=== PATIENT | female | born 1985 | race Caucasian/White ===

== ENCOUNTER 2016-08-16 11:55 | Observation (INO) | payer OTHER ==
[~2016-08-16] VITALS: Ht 165.1 cm; Wt 73.1 kg
--- NOTE | 2016-08-16 12:27 | PHYS DOC ---
Adult General Chief Complaint Chief Complaint: NEAR SYNCOPE HPI HPI Patient is a 31 year old female who presents with episode. She is in detention currently and states she's missed her last menstrual period and she is concerned she might be . She states she was just walking and suddenly passed out and landed on her right knee and right elbow. She denies hitting her head or neck. She remembers most of it but not 100% of it. She states she felt somewhat nauseated and little short of breath during the event which resolved afterwards. Currently she denies any shortness breath chest pain nausea vomiting abdominal discomfort or lightheadedness. She is complaining about right knee hurting however she is able to ambulate on it. She states she missed her last menstrual cycle and is concerned she could be due to her symptoms. She denies any vaginal bleeding or dysuria. Review of Systems Review of Systems Constitutional: Denies fever or chills [] Eyes: Denies change in visual acuity, redness, or eye pain [] HENT: Denies nasal congestion or sore throat [] Respiratory: Denies cough or shortness of breath [] Cardiovascular: No additional information not addressed in HPI [] GI: Denies abdominal pain, nausea, vomiting, bloody stools or diarrhea [] : Denies dysuria or hematuria [] Musculoskeletal: Denies back pain or joint pain [] Integument: Denies rash or skin lesions [] Neurologic: Denies headache, focal weakness or sensory changes [] Endocrine: Denies polyuria or polydipsia [] Current Medications Current Medications Current Medications Medications (Trade) Dose Ordered Sig/Sade Start Time Stop Time Status Last Admin Dose Admin Ceftriaxone Sodium 1 gm/ Sodium Chloride 50 ml @ 100 mls/hr Q24H 08/17/16 15:00 Ceftriaxone Sodium (Rocephin 1gm Ivpb For Omni) 50 ml @ 100 mls/hr 1X ONCE 08/16/16 14:45 08/16/16 15:14 DC Ondansetron HCl (Zofran) 4 mg PRN Q8HRS PRN 08/16/16 15:30 08/17/16 15:29 Allergies Allergies Allergies Coded Allergies Type Severity Reaction Last Updated Verified prochlorperazine Allergy Severe Unknown 08/16/16 Yes trimethobenzamide Allergy Severe Unknown 08/16/16 Yes linezolid Allergy Intermediate Hives 08/16/16 Yes Physical Exam Physical Exam Constitutional: Well developed, well nourished, no acute distress, non-toxic appearance. [] HENT: Normocephalic, atraumatic, bilateral external ears normal, oropharynx moist, no oral exudates, nose normal. [] Eyes: PERRLA, EOMI, conjunctiva normal, no discharge. [] Neck: Normal range of motion, no tenderness, supple, no stridor. [] Cardiovascular:Heart rate regular rhythm, no murmur [] Lungs & Thorax: Bilateral breath sounds clear to auscultation [] Abdomen: Bowel sounds normal, soft, no tenderness, no masses, no pulsatile masses. [] Skin: Warm, dry, no erythema, no rash. [] Back: No tenderness, no CVA tenderness. [] Extremities: Palpation over the right kneecap with ecchymosis, no obvious deformity, remaining joints are nontender with full range of motion, no cyanosis , no clubbing, ROM intact, no edema. [] Neurologic: Alert and oriented X 3, normal motor function, normal sensory function, no focal deficits noted. [] Psychologic: Affect normal, judgement normal, mood normal. [] Current Patient Data Vital Signs Vital Signs Date Time Temp Pulse Resp B/P Pulse Ox O2 Delivery O2 Flow Rate FiO2 08/16/16 12:10 98.1 69 18 133/82 96 Room Air 98.1 Lab Values Laboratory Tests Test 08/16/16 11:18 08/16/16 12:10 08/16/16 13:00 08/16/16 14:20 POC Urine HCG, Qualitative Hcg negative (Negative) Urine Collection Type Unknown Urine Color Melisa Urine Clarity Clear Urine pH 6.0 Urine Specific [place] 1.025 Urine Protein 30mg/dL (NEG-TRACE) Urine Glucose (UA) Negativemg/dL (NEG) Urine Ketones (Stick) Tracemg/dL (NEG) Urine Blood Negative (NEG) Urine Nitrite Negative (NEG) Urine Bilirubin Small (NEG) Urine Urobilinogen Dipstick 1.0mg/dL (0.2 mg/dL) Urine Leukocyte Esterase Moderate (NEG) Urine RBC 0/HPF (0-2) Urine WBC Tntc/HPF (0-4) Urine Bacteria 0/HPF (0-FEW) Urine Mucus Mod/LPF Urine Opiates Screen Neg (NEG) Urine Methadone Screen Neg (NEG) Urine Barbiturates Neg (NEG) Urine Phencyclidine Screen Neg (NEG) Urine Amphetamine/Methamphetamine Neg (NEG) Urine Benzodiazepines Screen Pos (NEG) Urine Cocaine Screen Neg (NEG) Urine Cannabinoids Screen Pos (NEG) Urine Ethyl Alcohol Neg (NEG) White Blood Count 11.2x10^3/uL (4.0-11.0) H Red Blood Count 4.54x10^6/uL (3.50-5.40) Hemoglobin 14.6g/dL (12.0-15.5) Hematocrit 44.2% (36.0-47.0) Mean Corpuscular Volume 98fL (79-100) Mean Corpuscular Hemoglobin 32pg (25-35) Mean Corpuscular Hemoglobin Concent 33g/dL (31-37) Red Cell Distribution Width 13.1% (11.5-14.5) Platelet Count 338x10^3/uL (140-400) Neutrophils (%) (Auto) 75% (31-73) H Lymphocytes (%) (Auto) 17% (24-48) L Monocytes (%) (Auto) 7% (0-9) Eosinophils (%) (Auto) 0% (0-3) Basophils (%) (Auto) 0% (0-3) Neutrophils # (Auto) 8.4x10^3uL (1.8-7.7) H Lymphocytes # (Auto) 1.9x10^3/uL (1.0-4.8) Monocytes # (Auto) 0.8x10^3/uL (0.0-1.1) Eosinophils # (Auto) 0.0x10^3/uL (0.0-0.7) Basophils # (Auto) 0.0x10^3/uL (0.0-0.2) D-Dimer (Wilma) < 0.27ug/mlFEU (0.00-0.50) Sodium Level 141mmol/L (136-145) Potassium Level 4.6mmol/L (3.5-5.1) Chloride Level 105mmol/L (98-107) Carbon Dioxide Level 32mmol/L (21-32) Anion Gap 4 (6-14) L Blood Urea Nitrogen 9mg/dL (7-20) Creatinine 0.8mg/dL (0.6-1.0) Estimated GFR (Cockcroft-Gault) 82.6 Glucose Level 95mg/dL (70-99) Calcium Level 9.1mg/dL (8.5-10.1) Magnesium Level 2.3mg/dL (1.8-2.4) Total Bilirubin 0.3mg/dL (0.2-1.0) Direct Bilirubin 0.1mg/dL (0.0-0.2) Aspartate Amino Transferase (AST) 33U/L (15-37) Alanine Aminotransferase (ALT) 80U/L (14-59) H Alkaline Phosphatase 83U/L (46-116) Creatine Kinase 24U/L (26-192) L 22U/L (26-192) L Creatine Kinase MB (Mass) 1.9ng/mL (0.0-3.6) 2.1ng/mL (0.0-3.6) Creatine Kinase MB Relative Index 7.9% (0-4) H 9.5% (0-4) H Troponin I Quantitative < 0.017ng/mL (0.000-0.055) < 0.017ng/mL (0.000-0.055) CW-Dfq-V-Type Natriuretic Peptide 72pg/mL (0-124) Total Protein 6.6g/dL (6.4-8.2) Albumin 3.4g/dL (3.4-5.0) Thyroid Stimulating Hormone (TSH) 3.521uIU/mL (0.358-3.74) Serum Test, Qualitative Negative (NEG) Laboratory Tests 08/16/16 13:00 Laboratory Tests 08/16/16 13:00 EKG EKG EKG shows sinus rhythm with a rate of 62 bpm with an incomplete right bundle branch morphology, no ST elevations, T-wave inversions in lead 3, normal axis, QTC 408 ms, as interpreted by me. Radiology/Procedures Radiology/Procedures [facility] [address] [place] [address] IMAGING REPORT Signed PATIENT: JOSE YANG ACCOUNT: [id number] : 1985 LOCATION: ER AGE: 31 SEX: F EXAM STATUS: PRE ER ORD. PHYSICIAN: CHAITANYA MANRIQUE MD REASON: fall with knee pain PROCEDURE: KNEE RIGHT 4V Right knee with patella, 4 views, 08/16/2016: History: Syncope anterior pain No fracture or dislocation is identified. No significant joint effusion is seen. There is subcutaneous edema anteriorly. IMPRESSION: No acute bony abnormality is detected. DICTATED and SIGNED BY: JOSH ROCA MD DATE: 08/16/16 1314 CC: CHAITANYA MANRIQUE MD ~ Impressions: Syncope UTI Course & Med Decision Making Course & Med Decision Making Pertinent Labs and Imaging studies reviewed. (See chart for details) Patient's EKG has T-wave inversions in lead 3, her CK MB index on repeat has risen. She does have to numerous to count white blood cells in her urine without any bacteria which is suspicious for chlamydia. She denies any vaginal discharge or other concerns. I did order 1 g of Rocephin for possible UTI and she will need a GC chlamydia test in-house. Patient is being admitted to hospitalists in stable condition at this time. Dragon Disclaimer Dragon Disclaimer This electronic medical record was generated, in whole or in part, using a voice recognition dictation system. Departure Departure Impression: Primary Impression: Syncope Disposition: ADMITTED INPATIENT Admitting Physician: Marlene Andres Condition: STABLE CHAITANYA MANRIQUE MD Aug 16, 2016 12:26
[2016-08-16 12:30] LABS: BILIRUBIN,URINE SMALL (NEG); GLUCOSE,URINE NEGATIVE (NEG); NITRITE,URINE NEGATIVE (NEG); PROTEIN,URINE 30 mg/dL (NEG-TRACE)
[2016-08-16 12:37] LABS: BARBITURATES NEG (NEG); BENZODIAZEPINES POS (NEG); CANNABINOIDS POS (NEG); COCAINE NEG (NEG); ETHANOL, URINE NEG (NEG); METHADONE NEG (NEG); OPIATES NEG (NEG); PHENCYCLIDINE NEG (NEG)
[2016-08-16 12:45] LABS: RBC,URINE 0 /HPF (0-2); WBC,URINE TNTC /HPF (0-4)
[2016-08-16 12:46] LABS: BACTERIA,URINE 0 /HPF (0-FEW)
[2016-08-16 13:16] LABS: BASO % 0 % (0-3); EOS % 0 % (0-3); HEMATOCRIT 44.2 % (36.0-47.0); HEMOGLOBIN 14.6 g/dL (12.0-15.5); LYMPH # 1.9 x10^3/uL (1.0-4.8); LYMPH % 17 % (24-48); MEAN CORPUSCULAR HEMOGLOBIN 32 pg (25-35); MEAN CORPUSCULAR HGB CONC 33 g/dL (31-37); MEAN CORPUSCULAR VOLUME 98 fL (79-100); MONO % 7 % (0-9); NEUT % 75 % (31-73); PLATELET COUNT 338 x10^3/uL (140-400); RED BLOOD COUNT 4.54 x10^6/uL (3.50-5.40); RED CELL DISTRIBUTION WIDTH 13.1 % (11.5-14.5); WHITE BLOOD COUNT 11.2 x10^3/uL (4.0-11.0)
--- NOTE | 2016-08-16 13:17 | RAD ---
Right knee with patella, 4 views, 08/16/2016: History: Syncope anterior pain No fracture or dislocation is identified. No significant joint effusion is seen. There is subcutaneous edema anteriorly. IMPRESSION: No acute bony abnormality is detected.
[2016-08-16 13:28] LABS: NEG OBC SER NEG; POS OBC SER POS
[2016-08-16 13:32] LABS: CALCIUM 9.1 mg/dL (8.5-10.1); CREATININE 0.8 mg/dL (0.6-1.0); GFR 82.6; POTASSIUM 4.6 mmol/L (3.5-5.1)
[2016-08-16 13:39] LABS: ALBUMIN 3.4 g/dL (3.4-5.0); DIRECT BILIRUBIN 0.1 mg/dL (0.0-0.2); MAGNESIUM 2.3 mg/dL (1.8-2.4); TOTAL BILIRUBIN 0.3 mg/dL (0.2-1.0); TOTAL PROTEIN 6.6 g/dL (6.4-8.2)
[2016-08-16 13:46] LABS: CKMB INDEX 7.9 % (0-4); CKMB MASS 1.9 ng/mL (0.0-3.6)
--- NOTE | 2016-08-16 14:47 | EKG ---
[facility] [address] [place] [address] Test Date: 2016-08-16 Test Time: 12:01:06 Pat Name: JOSE YANG Department: Room: Gender: F Excel Developer: : 1985 Requested By: CHAITANYA MANRIQUE Order Number: [id number] Reading MD: Bong Staton Measurements Intervals [place] Rate: 62 P: 48 CT: 122 QRS: 63 QRSD: 94 T: 24 QT: 400 QTc: 408 Interpretive Statements SINUS RHYTHM INCOMPLETE RIGHT BUNDLE BRANCH BLOCK Electronically Signed On 08-17-2016 8:30:21 CDT by Bong Staton
[2016-08-16 14:50] LABS: CKMB INDEX 9.5 % (0-4); CKMB MASS 2.1 ng/mL (0.0-3.6)
[2016-08-16] MEDS ORDERED: ONDANSETRON PF 4 MG/2 ML VIAL. IV PRN (15:30)
--- NOTE | 2016-08-16 16:48 | PDOC2 ---
MAYNOR DIAZ SPICE ROOM WORKER 08/16/16 1648: CARDIAC CONSULT DATE OF CONSULT Date of Consult DATE: 08/16/16 TIME: 16:31 REASON FOR CONSULT Reason for Consult: syncope REFERRING PHYSICIAN Referring Physician: Dr. Mansfield SOURCE Source: Chart review, Patient HISTORY OF PRESENT ILLNESS HISTORY OF PRESENT ILLNESS This is a pleasant 31 yo female who presented secondary to syncopal episode. Presently incarcerated. Patient reports she was walking in the medication room earlier today and suddenly felt dizzy and passed out. Staff was near and able to check vital immediately; BP and HR reportedly dropped low. Possible brief LOC. Landed on right knee and elbow. Denies feeling anxious or stress prior to episode. No chest pains, palpitations, recent fevers or illness. Tries to remain adequately hydrated. Patient reports history of syncopal episodes over 11 years ago. Had multiple EKGs and wore Holter monitor for 3 days, which did not reveal any acute abnormalities. With previous episodes, patient reported having preceding symptoms that would allow he to sit or lie down prior to passing out. This however, was not the case with today's episode. Carotid stimulation performed without any pauses noted. PAST MEDICAL HISTORY Cardiovascular: Other (syncopal episodes ) Pulmonary: No pertinent hx GI: No pertinent hx Heme/Onc: No pertinent hx Hepatobiliary: No pertinent hx Rheumatologic: No pertinent hx ENT: No pertinent hx Renal/: No pertinent hx Endocrine: No pertinent hx Dermatology: No pertinent hx PAST SURGICAL HISTORY Past Surgical History: No pertinent history FAMILY HISTORY Family History: Other (none pertinent ) SOCIAL HISTORY Smoke: <1 pack per day ALCOHOL: none Drugs: Marijuana Lives: Roommate (incarcerated ) CURRENT MEDICATIONS CURRENT MEDICATIONS Current Medications Medications (Trade) Dose Ordered Sig/Sade Route PRN Reason Start Time Stop Time Status Last Admin Dose Admin Ceftriaxone Sodium (Rocephin 1gm Ivpb For Omni) 50 ml @ 100 mls/hr 1X ONCE IV 08/16/16 14:45 08/16/16 15:14 DC 08/16/16 15:59 ALLERGIES ALLERGIES: Coded Allergies: prochlorperazine (Verified Allergy, Severe, Unknown, 08/16/16) DYSTONIC REACTION trimethobenzamide (Verified Allergy, Severe, Unknown, 08/16/16) DYSTONIC REACTION linezolid (Verified Allergy, Intermediate, Hives, 4/26/17) ROS Review of System 14 point ROS conducted with pertinent positives noted above in HPI PHYSICAL EXAM General: Alert, Oriented X3, Cooperative HEENT: Atraumatic, Mucous membr. moist/pink Lungs: Clear to auscultation, Normal air movement Heart: Regular rate, Normal S1, Normal S2 Abdomen: Normal bowel sounds Extremities: No edema, Normal pulses Skin: No breakdown, No significant lesion Neuro: Normal speech, Sensation intact Psych/Mental Status: Mental status NL, Mood NL MUSCULOSKELETAL: No joint tenderness VITALS VITALS Vital Signs Date Time Temp Pulse Resp B/P Pulse Ox O2 Delivery O2 Flow Rate FiO2 08/16/16 12:10 98.1 69 18 133/82 96 Room Air 98.1 LABS Lab: Laboratory Tests Test 08/16/16 11:18 08/16/16 12:10 08/16/16 13:00 08/16/16 14:20 Bedside Urine HCG, Qualitative Hcg negative (Negative) Urine Collection Type Unknown Urine Color Melisa Urine Clarity Clear Urine pH 6.0 Urine Specific [place] 1.025 Urine Protein 30mg/dL (NEG-TRACE) Urine Glucose (UA) Negativemg/dL (NEG) Urine Ketones (Stick) Tracemg/dL (NEG) Urine Blood Negative (NEG) Urine Nitrite Negative (NEG) Urine Bilirubin Small (NEG) Urine Urobilinogen Dipstick 1.0mg/dL (0.2 mg/dL) Urine Leukocyte Esterase Moderate (NEG) Urine RBC 0/HPF (0-2) Urine WBC Tntc/HPF (0-4) Urine Bacteria 0/HPF (0-FEW) Urine Mucus Mod/LPF Urine Opiates Screen Neg (NEG) Urine Methadone Screen Neg (NEG) Urine Barbiturates Neg (NEG) Urine Phencyclidine Screen Neg (NEG) Urine Amphetamine/Methamphetamine Neg (NEG) Urine Benzodiazepines Screen Pos (NEG) Urine Cocaine Screen Neg (NEG) Urine Cannabinoids Screen Pos (NEG) Urine Ethyl Alcohol Neg (NEG) White Blood Count 11.2x10^3/uL (4.0-11.0) Red Blood Count 4.54x10^6/uL (3.50-5.40) Hemoglobin 14.6g/dL (12.0-15.5) Hematocrit 44.2% (36.0-47.0) Mean Corpuscular Volume 98fL (79-100) Mean Corpuscular Hemoglobin 32pg (25-35) Mean Corpuscular Hemoglobin Concent 33g/dL (31-37) Red Cell Distribution Width 13.1% (11.5-14.5) Platelet Count 338x10^3/uL (140-400) Neutrophils (%) (Auto) 75% (31-73) Lymphocytes (%) (Auto) 17% (24-48) Monocytes (%) (Auto) 7% (0-9) Eosinophils (%) (Auto) 0% (0-3) Basophils (%) (Auto) 0% (0-3) Neutrophils # (Auto) 8.4x10^3uL (1.8-7.7) Lymphocytes # (Auto) 1.9x10^3/uL (1.0-4.8) Monocytes # (Auto) 0.8x10^3/uL (0.0-1.1) Eosinophils # (Auto) 0.0x10^3/uL (0.0-0.7) Basophils # (Auto) 0.0x10^3/uL (0.0-0.2) D-Dimer (Wilma) < 0.27ug/mlFEU (0.00-0.50) Sodium Level 141mmol/L (136-145) Potassium Level 4.6mmol/L (3.5-5.1) Chloride Level 105mmol/L (98-107) Carbon Dioxide Level 32mmol/L (21-32) Anion Gap 4 (6-14) Blood Urea Nitrogen 9mg/dL (7-20) Creatinine 0.8mg/dL (0.6-1.0) Estimated GFR (Cockcroft-Gault) 82.6 Glucose Level 95mg/dL (70-99) Calcium Level 9.1mg/dL (8.5-10.1) Magnesium Level 2.3mg/dL (1.8-2.4) Total Bilirubin 0.3mg/dL (0.2-1.0) Direct Bilirubin 0.1mg/dL (0.0-0.2) Aspartate Amino Transf (AST/SGOT) 33U/L (15-37) Alanine Aminotransferase (ALT/SGPT) 80U/L (14-59) Alkaline Phosphatase 83U/L (46-116) Creatine Kinase 24U/L (26-192) 22U/L (26-192) Creatine Kinase MB (Mass) 1.9ng/mL (0.0-3.6) 2.1ng/mL (0.0-3.6) Creatine Kinase MB Relative Index 7.9% (0-4) 9.5% (0-4) Troponin I Quantitative < 0.017ng/mL (0.000-0.055) < 0.017ng/mL (0.000-0.055) EL-Kns-N-Type Natriuretic Peptide 72pg/mL (0-124) Total Protein 6.6g/dL (6.4-8.2) Albumin 3.4g/dL (3.4-5.0) Thyroid Stimulating Hormone (TSH) 3.521uIU/mL (0.358-3.74) Serum Test, Qualitative Negative (NEG) ASSESSMENT/PLAN ASSESSMENT/PLAN 1. syncope likely neurocardiogenic based upon nature of symptoms will check echo to assess for significant valvular abnormalities contributing plan for tilt-table test in am for further evaluation if positive, would consider for PPM 2. UTI treatment per PCP Problems: TRINIDAD DU MD 08/16/16 1712: CARDIAC CONSULT ALLERGIES ALLERGIES: Coded Allergies: prochlorperazine (Verified Allergy, Severe, Unknown, 08/16/16) DYSTONIC REACTION trimethobenzamide (Verified Allergy, Severe, Unknown, 08/16/16) DYSTONIC REACTION linezolid (Verified Allergy, Intermediate, Hives, 08/16/16) ASSESSMENT/PLAN ASSESSMENT/PLAN Patient seen and examined. Agree with GEROPSYCHOLOGIST's assessment and plan. Syncope appears to be neurocardiogenic in etiology. Carotid massage did not elicit noted artery hypersensitivity syndrome. Check 2-D echo to assess LV function and rule out structural abnormalities. Plan for tilt table testing for further evaluation and consider pacemaker if needed. Thank you for your consultation. Problems: MAYNOR DIAZ APRN Aug 16, 2016 16:48 TRINIDAD DU MD Aug 16, 2016 17:12
--- NOTE | 2016-08-16 17:13 | ACF ---
Admission Forms Criteria SYNCOPE Clinical Indications for Admission to Inpatient Care ( Place 'X' for any and all applicable criteria): Admission is indicated for syncope and ANY ONE of the following (1)(2)(3)(4)(5) (6)(7) : [X]I. Inpatient admission required rather than observation care (Also use Syncope: Observation Care Criteria as appropriate) because of ANY ONE of the following: [ ]a) Hemodynamic instability that is severe or persistent [ ]b) Cardiac arrhythmias of immediate concern identified or strongly suspected (eg, needs electrophysiologic study) [ ]c) Acute coronary syndrome identified (Also use Myocardial Infarction or Angina Criteria form ) [ ]d) Structural cardiac disorder (eg, aortic stenosis) suspected as cause that requires immediate correction [ ]e) Respiratory symptoms (eg, dyspnea, tachypnea) that are severe or persistent [ ]f) Neurologic signs or symptoms that are severe or persistent ( eg, stroke, seizures, altered mental status) [ ]g) Severe electrolyte abnormalities requiring inpatient care [ ]h) Supplemental oxygen or respiratory treatment for over 24 hrs that are performable only in acute inpatient setting [ ]i) IV fluid to replace significant ongoing (eg, for over 24 hrs ) losses (>3 L/m2 per day) [ ]j) Continuous intravenous infusion of anticoagulation, platelet inhibitor, vasoactive, or antiarrhythmic medication(15)(16) [ ]k) Pulmonary artery catheter monitoring [ ]l) Temporary pacemaker placement(17) [ ]m) Emergent cardioversion(18) [X]n) Other conditions, treatment or monitoring requiring inpatient admission [ ]II. Suspicion of imminently dangerous cause (eg, rare causes like pericardial tamponade, pulmonary embolism) [ ]III. Syncope causing severe injury requiring hospitalization Extended stay beyond goal length of stay may be needed for(28) [ ]a) Dangerous arrhythmia(15)(23)(27)(29) [ ]b) Myocardial ischemia [ ]c) Seizure disorder [ ]d) Syncope-related injuries The original [employer] content created by [employer] has been revised. The portions of the content which have been revised are identified through the use of italic text or in bold, and [employer] has neither reviewed nor approved the modified material. All other unmodified content is copyright [employer]. Please see references footnoted in the original [facility] edition 2016 Admission Criteria Met?: Yes GINA MCKEON Aug 16, 2016 17:13
[2016-08-16 19:00] VITALS: BP 116/70
--- NOTE | 2016-08-16 19:58 | PDOC1 ---
History and Physical Past Medical History Cardiovascular: Other (syncopal episodes ) Pulmonary: No pertinent hx GI: No pertinent hx Heme/Onc: No pertinent hx Hepatobiliary: No pertinent hx Rheumatologic: No pertinent hx ENT: No pertinent hx Renal/: No pertinent hx Endocrine: No pertinent hx Dermatology: No pertinent hx Past Surgical History Past Surgical History: No pertinent history Family History Family History: Other (none pertinent ) Social History Smoke: <1 pack per day ALCOHOL: none Drugs: Marijuana Current Problem List Problem List Problems Medical Problems: (1) Syncope Status: Acute Current Medications Current Medications Current Medications Medications (Trade) Dose Ordered Sig/Sade Start Time Stop Time Status Last Admin Dose Admin Ceftriaxone Sodium 1 gm/ Sodium Chloride 50 ml @ 100 mls/hr Q24H 08/17/16 15:00 Ceftriaxone Sodium (Rocephin 1gm Ivpb For Omni) 50 ml @ 100 mls/hr 1X ONCE 08/16/16 14:45 08/16/16 15:14 DC 08/16/16 15:59 100 MLS/HR Ondansetron HCl (Zofran) 4 mg PRN Q8HRS PRN 08/16/16 15:30 08/17/16 15:29 Allergies Allergies Allergies Coded Allergies Type Severity Reaction Last Updated Verified prochlorperazine Allergy Severe Unknown 08/16/16 Yes trimethobenzamide Allergy Severe Unknown 08/16/16 Yes linezolid Allergy Intermediate Hives 08/16/16 Yes ROS Review of System CONSTITUTIONAL: No fever or chills EYES: No recent changes SKIN: No rash or itching CARDIOVASCULAR: syncope,no palpitations, or edema RESPIRATORY: No SOB or cough GASTROINTESTINAL: No nausea, vomiting or abdominal pain NEUROLOGICAL: No headaches or weakness ENDOCRINE: No cold or heat intolerance GENITOURINARY: No urgency or frequency of urination MUSCULOSKELETAL: No back pain or joint pain LYMPHATICS: No enlarged lymph nodes PSYCHIATRIC: No anxiety or depression Physical Exam Physical Exam GEN.: No apparent distress. Alert and oriented. HEENT: Head is normocephalic, atraumatic NECK: Supple. LUNGS: Clear to auscultation. HEART: RRR, S1, S2 present. Peripheral pulses intact ABDOMEN: Soft, nontender. Positive bowel sounds. EXTREMITIES: Without any cyanosis. NEUROLOGIC: Normal speech, normal tone PSYCHIATRIC: Normal affect, normal mood. SKIN: No ulcerations Vitals Vitals Vital Signs Date Time Temp Pulse Resp B/P Pulse Ox O2 Delivery O2 Flow Rate FiO2 08/16/16 18:00 67 20 111/68 99 Room Air 08/16/16 12:10 98.1 98.1 Labs Labs Laboratory Tests Test 08/16/16 11:18 08/16/16 12:10 08/16/16 13:00 08/16/16 14:20 Bedside Urine HCG, Qualitative Hcg negative (Negative) Urine Collection Type Unknown Urine Color Melisa Urine Clarity Clear Urine pH 6.0 Urine Specific [place] 1.025 Urine Protein 30mg/dL (NEG-TRACE) Urine Glucose (UA) Negativemg/dL (NEG) Urine Ketones (Stick) Tracemg/dL (NEG) Urine Blood Negative (NEG) Urine Nitrite Negative (NEG) Urine Bilirubin Small (NEG) Urine Urobilinogen Dipstick 1.0mg/dL (0.2 mg/dL) Urine Leukocyte Esterase Moderate (NEG) Urine RBC 0/HPF (0-2) Urine WBC Tntc/HPF (0-4) Urine Bacteria 0/HPF (0-FEW) Urine Mucus Mod/LPF Urine Opiates Screen Neg (NEG) Urine Methadone Screen Neg (NEG) Urine Barbiturates Neg (NEG) Urine Phencyclidine Screen Neg (NEG) Urine Amphetamine/Methamphetamine Neg (NEG) Urine Benzodiazepines Screen Pos (NEG) Urine Cocaine Screen Neg (NEG) Urine Cannabinoids Screen Pos (NEG) Urine Ethyl Alcohol Neg (NEG) White Blood Count 11.2x10^3/uL (4.0-11.0) Red Blood Count 4.54x10^6/uL (3.50-5.40) Hemoglobin 14.6g/dL (12.0-15.5) Hematocrit 44.2% (36.0-47.0) Mean Corpuscular Volume 98fL (79-100) Mean Corpuscular Hemoglobin 32pg (25-35) Mean Corpuscular Hemoglobin Concent 33g/dL (31-37) Red Cell Distribution Width 13.1% (11.5-14.5) Platelet Count 338x10^3/uL (140-400) Neutrophils (%) (Auto) 75% (31-73) Lymphocytes (%) (Auto) 17% (24-48) Monocytes (%) (Auto) 7% (0-9) Eosinophils (%) (Auto) 0% (0-3) Basophils (%) (Auto) 0% (0-3) Neutrophils # (Auto) 8.4x10^3uL (1.8-7.7) Lymphocytes # (Auto) 1.9x10^3/uL (1.0-4.8) Monocytes # (Auto) 0.8x10^3/uL (0.0-1.1) Eosinophils # (Auto) 0.0x10^3/uL (0.0-0.7) Basophils # (Auto) 0.0x10^3/uL (0.0-0.2) D-Dimer (Wilma) < 0.27ug/mlFEU (0.00-0.50) Sodium Level 141mmol/L (136-145) Potassium Level 4.6mmol/L (3.5-5.1) Chloride Level 105mmol/L (98-107) Carbon Dioxide Level 32mmol/L (21-32) Anion Gap 4 (6-14) Blood Urea Nitrogen 9mg/dL (7-20) Creatinine 0.8mg/dL (0.6-1.0) Estimated GFR (Cockcroft-Gault) 82.6 Glucose Level 95mg/dL (70-99) Calcium Level 9.1mg/dL (8.5-10.1) Magnesium Level 2.3mg/dL (1.8-2.4) Total Bilirubin 0.3mg/dL (0.2-1.0) Direct Bilirubin 0.1mg/dL (0.0-0.2) Aspartate Amino Transf (AST/SGOT) 33U/L (15-37) Alanine Aminotransferase (ALT/SGPT) 80U/L (14-59) Alkaline Phosphatase 83U/L (46-116) Creatine Kinase 24U/L (26-192) 22U/L (26-192) Creatine Kinase MB (Mass) 1.9ng/mL (0.0-3.6) 2.1ng/mL (0.0-3.6) Creatine Kinase MB Relative Index 7.9% (0-4) 9.5% (0-4) Troponin I Quantitative < 0.017ng/mL (0.000-0.055) < 0.017ng/mL (0.000-0.055) ZC-Wjh-D-Type Natriuretic Peptide 72pg/mL (0-124) Total Protein 6.6g/dL (6.4-8.2) Albumin 3.4g/dL (3.4-5.0) Thyroid Stimulating Hormone (TSH) 3.521uIU/mL (0.358-3.74) Serum Test, Qualitative Negative (NEG) Laboratory Tests Test 08/16/16 11:18 08/16/16 12:10 08/16/16 13:00 08/16/16 14:20 Bedside Urine HCG, Qualitative Hcg negative (Negative) Urine Collection Type Unknown Urine Color Melisa Urine Clarity Clear Urine pH 6.0 Urine Specific [place] 1.025 Urine Protein 30mg/dL (NEG-TRACE) Urine Glucose (UA) Negativemg/dL (NEG) Urine Ketones (Stick) Tracemg/dL (NEG) Urine Blood Negative (NEG) Urine Nitrite Negative (NEG) Urine Bilirubin Small (NEG) Urine Urobilinogen Dipstick 1.0mg/dL (0.2 mg/dL) Urine Leukocyte Esterase Moderate (NEG) Urine RBC 0/HPF (0-2) Urine WBC Tntc/HPF (0-4) Urine Bacteria 0/HPF (0-FEW) Urine Mucus Mod/LPF Urine Opiates Screen Neg (NEG) Urine Methadone Screen Neg (NEG) Urine Barbiturates Neg (NEG) Urine Phencyclidine Screen Neg (NEG) Urine Amphetamine/Methamphetamine Neg (NEG) Urine Benzodiazepines Screen Pos (NEG) Urine Cocaine Screen Neg (NEG) Urine Cannabinoids Screen Pos (NEG) Urine Ethyl Alcohol Neg (NEG) White Blood Count 11.2x10^3/uL (4.0-11.0) Red Blood Count 4.54x10^6/uL (3.50-5.40) Hemoglobin 14.6g/dL (12.0-15.5) Hematocrit 44.2% (36.0-47.0) Mean Corpuscular Volume 98fL (79-100) Mean Corpuscular Hemoglobin 32pg (25-35) Mean Corpuscular Hemoglobin Concent 33g/dL (31-37) Red Cell Distribution Width 13.1% (11.5-14.5) Platelet Count 338x10^3/uL (140-400) Neutrophils (%) (Auto) 75% (31-73) Lymphocytes (%) (Auto) 17% (24-48) Monocytes (%) (Auto) 7% (0-9) Eosinophils (%) (Auto) 0% (0-3) Basophils (%) (Auto) 0% (0-3) Neutrophils # (Auto) 8.4x10^3uL (1.8-7.7) Lymphocytes # (Auto) 1.9x10^3/uL (1.0-4.8) Monocytes # (Auto) 0.8x10^3/uL (0.0-1.1) Eosinophils # (Auto) 0.0x10^3/uL (0.0-0.7) Basophils # (Auto) 0.0x10^3/uL (0.0-0.2) D-Dimer (Wilma) < 0.27ug/mlFEU (0.00-0.50) Sodium Level 141mmol/L (136-145) Potassium Level 4.6mmol/L (3.5-5.1) Chloride Level 105mmol/L (98-107) Carbon Dioxide Level 32mmol/L (21-32) Anion Gap 4 (6-14) Blood Urea Nitrogen 9mg/dL (7-20) Creatinine 0.8mg/dL (0.6-1.0) Estimated GFR (Cockcroft-Gault) 82.6 Glucose Level 95mg/dL (70-99) Calcium Level 9.1mg/dL (8.5-10.1) Magnesium Level 2.3mg/dL (1.8-2.4) Total Bilirubin 0.3mg/dL (0.2-1.0) Direct Bilirubin 0.1mg/dL (0.0-0.2) Aspartate Amino Transf (AST/SGOT) 33U/L (15-37) Alanine Aminotransferase (ALT/SGPT) 80U/L (14-59) Alkaline Phosphatase 83U/L (46-116) Creatine Kinase 24U/L (26-192) 22U/L (26-192) Creatine Kinase MB (Mass) 1.9ng/mL (0.0-3.6) 2.1ng/mL (0.0-3.6) Creatine Kinase MB Relative Index 7.9% (0-4) 9.5% (0-4) Troponin I Quantitative < 0.017ng/mL (0.000-0.055) < 0.017ng/mL (0.000-0.055) ZS-Ejk-I-Type Natriuretic Peptide 72pg/mL (0-124) Total Protein 6.6g/dL (6.4-8.2) Albumin 3.4g/dL (3.4-5.0) Thyroid Stimulating Hormone (TSH) 3.521uIU/mL (0.358-3.74) Serum Test, Qualitative Negative (NEG) VTE Prophylaxis Ordered VTE Prophylaxis Devices: No VTE Pharmacological Prophylaxi: No ZION RAJAN MD Aug 16, 2016 19:58
[2016-08-16] MEDS ORDERED: hydrOXYzine PAMOATE 25 MG CAPSULE PO PRN (21:30)
[2016-08-16] MEDS: OLANZAPINE 5 MG TABLET. PO SCH (21:48)
[2016-08-16 23:00] VITALS: BP 94/53
[2016-08-17] VITALS (7 sets, daily range): BP systolic 105–117; BP diastolic 54–71
--- NOTE | 2016-08-17 03:51 | HP ---
ADMIT DATE: 08/16/2016 CHIEF COMPLAINT: Syncope. HISTORY OF PRESENT ILLNESS: This is a 31-year-old female patient with a prior history of syncope, who was brought from residential for a syncopal episode. Reportedly, the patient was walking and suddenly felt dizzy and passed out. As per the report, the patient's blood pressures were dropping with orthostatic checks and she had a brief loss of consciousness. After that, she regained consciousness. She had mild trauma on the right knee and elbow. She denies any palpitation, chest pain or shortness of breath, has no prior history of coronary artery disease. PAST MEDICAL HISTORY, REVIEW OF SYSTEMS, PHYSICAL EXAMINATION: Please see my electronic H and P. LABORATORY FINDINGS: CBC within normal limits. Chemistry within normal limits including 3 sets of troponins and test is negative and TSH is within normal limits. IMAGING STUDIES: X-ray of the knee, no acute bony abnormality seen. ASSESSMENT: Syncope, suspected neurocardiogenic versus vasovagal. PLAN: 1. She has been admitted to the hospital and currently on IV hydration. I will continue all her home medications. She has a history of anxiety and Depression 2. Cardiology has been consulted. We will get echocardiogram and continue to monitor on telemetry. 3. P.r.n. Xanax , PRN hydralazine for hypertension. ZION RAJAN MD DR: MELINDA/kushal JOB#: [id number] / [id number] DEBRA
[2016-08-17 04:05] LABS: BASO % 0 % (0-3); EOS % 0 % (0-3); HEMATOCRIT 41.7 % (36.0-47.0); LYMPH # 2.9 x10^3/uL (1.0-4.8); LYMPH % 37 % (24-48); MEAN CORPUSCULAR HEMOGLOBIN 33 pg (25-35); MEAN CORPUSCULAR HGB CONC 34 g/dL (31-37); MEAN CORPUSCULAR VOLUME 98 fL (79-100); MONO % 8 % (0-9); NEUT % 55 % (31-73); PLATELET COUNT 316 x10^3/uL (140-400); RED BLOOD COUNT 4.26 x10^6/uL (3.50-5.40); RED CELL DISTRIBUTION WIDTH 12.9 % (11.5-14.5); WHITE BLOOD COUNT 7.9 x10^3/uL (4.0-11.0)
[2016-08-17 04:24] LABS: CALCIUM 8.5 mg/dL (8.5-10.1); CREATININE 0.7 mg/dL (0.6-1.0); GFR 96.4; POTASSIUM 4.3 mmol/L (3.5-5.1)
--- NOTE | 2016-08-17 12:21 | PDOC ---
QUINTEN HILLIARD TRANSITION LEAD 08/17/16 1221: CARDIO Progress Notes Date and Time Date of Service 08/17/2016 Time of Evaluation 1210 Subjective Subjective: No Chest Pain, No shortness of breath, No Palpitations, No Dizziness, Other (ambulatory without difficulty) Vitals Vitals Vital Signs Date Time Temp Pulse Resp B/P Pulse Ox O2 Delivery O2 Flow Rate FiO2 08/17/16 10:53 97.9 57 16 117/66 97 Room Air 97.9 Weight Weight [ ] Input and Output Intake and Output Intake and Output 08/17/16 06:59 Intake Total 410 ml Balance 410 ml Intake Oral 360 ml IV Total 50 ml # Voids 4 Laboratory Labs Laboratory Tests Test 08/16/16 13:00 08/16/16 14:20 08/16/16 21:48 08/17/16 03:25 White Blood Count 11.2x10^3/uL (4.0-11.0) 7.9x10^3/uL (4.0-11.0) Red Blood Count 4.54x10^6/uL (3.50-5.40) 4.26x10^6/uL (3.50-5.40) Hemoglobin 14.6g/dL (12.0-15.5) 14.0g/dL (12.0-15.5) Hematocrit 44.2% (36.0-47.0) 41.7% (36.0-47.0) Mean Corpuscular Volume 98fL (79-100) 98fL (79-100) Mean Corpuscular Hemoglobin 32pg (25-35) 33pg (25-35) Mean Corpuscular Hemoglobin Concent 33g/dL (31-37) 34g/dL (31-37) Red Cell Distribution Width 13.1% (11.5-14.5) 12.9% (11.5-14.5) Platelet Count 338x10^3/uL (140-400) 316x10^3/uL (140-400) Neutrophils (%) (Auto) 75% (31-73) 55% (31-73) Lymphocytes (%) (Auto) 17% (24-48) 37% (24-48) Monocytes (%) (Auto) 7% (0-9) 8% (0-9) Eosinophils (%) (Auto) 0% (0-3) 0% (0-3) Basophils (%) (Auto) 0% (0-3) 0% (0-3) Neutrophils # (Auto) 8.4x10^3uL (1.8-7.7) 4.3x10^3uL (1.8-7.7) Lymphocytes # (Auto) 1.9x10^3/uL (1.0-4.8) 2.9x10^3/uL (1.0-4.8) Monocytes # (Auto) 0.8x10^3/uL (0.0-1.1) 0.6x10^3/uL (0.0-1.1) Eosinophils # (Auto) 0.0x10^3/uL (0.0-0.7) 0.0x10^3/uL (0.0-0.7) Basophils # (Auto) 0.0x10^3/uL (0.0-0.2) 0.0x10^3/uL (0.0-0.2) D-Dimer (Wilma) < 0.27ug/mlFEU (0.00-0.50) Sodium Level 141mmol/L (136-145) 142mmol/L (136-145) Potassium Level 4.6mmol/L (3.5-5.1) 4.3mmol/L (3.5-5.1) Chloride Level 105mmol/L (98-107) 107mmol/L (98-107) Carbon Dioxide Level 32mmol/L (21-32) 28mmol/L (21-32) Anion Gap 4 (6-14) 7 (6-14) Blood Urea Nitrogen 9mg/dL (7-20) 9mg/dL (7-20) Creatinine 0.8mg/dL (0.6-1.0) 0.7mg/dL (0.6-1.0) Estimated GFR (Cockcroft-Gault) 82.6 96.4 Glucose Level 95mg/dL (70-99) 81mg/dL (70-99) Calcium Level 9.1mg/dL (8.5-10.1) 8.5mg/dL (8.5-10.1) Magnesium Level 2.3mg/dL (1.8-2.4) Total Bilirubin 0.3mg/dL (0.2-1.0) Direct Bilirubin 0.1mg/dL (0.0-0.2) Aspartate Amino Transf (AST/SGOT) 33U/L (15-37) Alanine Aminotransferase (ALT/SGPT) 80U/L (14-59) Alkaline Phosphatase 83U/L (46-116) Creatine Kinase 24U/L (26-192) 22U/L (26-192) Creatine Kinase MB (Mass) 1.9ng/mL (0.0-3.6) 2.1ng/mL (0.0-3.6) Creatine Kinase MB Relative Index 7.9% (0-4) 9.5% (0-4) Troponin I Quantitative < 0.017ng/mL (0.000-0.055) < 0.017ng/mL (0.000-0.055) < 0.017ng/mL (0.000-0.055) < 0.017ng/mL (0.000-0.055) WU-Obg-H-Type Natriuretic Peptide 72pg/mL (0-124) Total Protein 6.6g/dL (6.4-8.2) Albumin 3.4g/dL (3.4-5.0) Thyroid Stimulating Hormone (TSH) 3.521uIU/mL (0.358-3.74) Serum Test, Qualitative Negative (NEG) Physical Exam HEENT: Neck Supple W Full Motion Chest: Symmetric LUNGS: Clear to Auscultation Heart: S1S2, RRR ([id number]) Abdomen: Soft N/T Extremities: No Edema, No Calf Tenderness Neurology: alert, oriented, follow commands Assessment Assessment 1. Syncope: possible neurocardiogenic syncope. 2. Sinus bradycardia: 40-50s overnight asymptomatic 3. UTI: per PCP 4. Zyprexa: indication?. Could potentially cause hypotension and syncope. Could be accentuated by prozac and vistaril as well. Defer to PCP Recommendations 1. TTE unremarkable. Tilt table pending 2. Avoid AV lissy blocking agents TRINIDAD DU MD 08/17/16 4745: CARDIO Progress Notes Assessment Assessment Patient seen and examined. Agree with [employer]'s assessment and plan. 2-D echo showed normal LV function without any significant structural abnormalities. Tilt table test showed vasodepressive response (hypootension) without cardio inhibitory response (no significant bradycardia) with reproduction of symptoms. She does not meet the criteria for permanent pacemaker implantation at this time. Plan for event monitor as an outpatient. Consider beta blockers if BP improves. QUINTEN HILLIARD APRN Aug 17, 2016 12:21 TRINIDAD DU MD Aug 17, 2016 16:48
--- NOTE | 2016-08-17 12:31 | CARD ---
APPROVED REPORT EXAM: Two-dimensional and M-mode echocardiogram with Doppler and color Doppler. Other Information Quality : GoodHR: 51bpm Rhythm : Bradycardia INDICATION Syncope Echo Enhancing Agent Indication: Rule Out Septal Defect Agent/Amount Used: Agitated Saline mL 2D DIMENSIONS RVDd2.9 (2.9-3.5cm)Left Atrium(2D)2.6 (1.6-4.0cm) IVSd0.9 (0.7-1.1cm)Aortic Root(2D)2.1 (2.0-3.7cm) LVDd3.8 (3.9-5.9cm)LVOT Diameter2.0 (1.8-2.4cm) PWd0.9 (0.7-1.1cm)LVDs2.5 (2.5-4.0cm) LVEF(%)64.0 (>50%) Aortic Valve AoV Peak Oscar.130.0cm/sAoV VTI26.1cm AO Peak GR.6.8mmHgLVOT Peak Oscar.97.3cm/s LVOT VTI 20.35cmAO Mean GR.4mmHg Mitral Valve MV E Dsxertuq90.3cm/sMV DECEL [id number] MV A Azrmcjmx14.5cm/sMV E Mean Gr.1mmHg MV TWV58ttQ/A Ratio1.6 MV A [id number] (PHT)3.25cm2 TDI E/Lateral E'4.9E/Medial E'7.0 Pulmonary Valve PV Peak Vheknhuq25.2cm/sPV Peak Grad.2mmHg RVOT VTI18.1cm Tricuspid Valve TR P. Zaswocgf134ey/sRAP DGQMMOVY3liUq TR Peak Gr.26nqUkACSN95laKm Pulmonary Vein S1 Dedhxcdw73.9cm/sD2 Jljkgpvt92.9cm/s PVa [id number] LEFT VENTRICLE The left ventricle is normal size. There is normal left ventricular wall thickness. Left ventricle sy stolic function is normal. The Ejection Fraction is 60-65%. There is normal LV segmental wall motion. The left ventricular diastolic function and filling is normal for age. There is no ventricular septa l defect visualized. RIGHT VENTRICLE The right ventricle is normal size. The right ventricular systolic function is normal. ATRIA The left atrium size is normal. The right atrium size is normal. Injection of bubbles documented no i nteratrial shunt. The interatrial septum is intact with no evidence for an atrial septal defect or pa tent foramen ovale as noted on 2-D or Doppler imaging. AORTIC VALVE The aortic valve is normal in structure and function. The aortic valve is trileaflet. Doppler and Col or Flow revealed no significant aortic regurgitation. There is no significant aortic valvular stenosi s. MITRAL VALVE The mitral valve is normal in structure and function. There is no evidence of mitral valve prolapse. There is no mitral valve stenosis. Doppler and Color Flow revealed trace mitral regurgitation. TRICUSPID VALVE The tricuspid valve is normal in structure and function. Doppler and Color Flow revealed trace tricus pid regurgitation. The PA pressure was estimated at 22 mmHg. There is no tricuspid valve stenosis. PULMONIC VALVE Doppler and Color Flow revealed no pulmonic valvular regurgitation. There is no pulmonic valvular tristian nosis. GREAT VESSELS The aortic root is normal in size. The IVC is normal in size and collapses >50% with inspiration. PERICARDIAL EFFUSION There is no pleural effusion. There is no evidence of significant pericardial effusion. Critical Notification Critical Value: No <Conclusion> Left ventricle systolic function is normal. The Ejection Fraction is 60-65%. There is normal LV segmental wall motion. Injection of bubbles documented no interatrial shunt. The interatrial septum is intact with no eviden ce for an atrial septal defect or patent foramen ovale as noted on 2-D or Doppler imaging.
--- NOTE | 2016-08-17 12:49 | PDOC ---
PROGRESS NOTES Chief Complaint Chief Complaint cc: syncope A/P Syncope possible due to anxiety, neuro cardiogenic, vs orthostatic N Gonorrhea PCR positive Chlamydia PCR positive Sinus bradycardia. Plan Echo normal LV EF Tilt table test TODAY Appreciate cardiology recommendations. Rocephin and Azithromycin one time dose in AM History of Present Illness History of Present Illness No symptoms no fever Vitals Vitals Vital Signs Date Time Temp Pulse Resp B/P Pulse Ox O2 Delivery O2 Flow Rate FiO2 08/17/16 10:53 97.9 57 16 117/66 97 Room Air 97.9 Physical Exam General: Alert, Oriented X3, Cooperative Heart: Regular rate, Normal S1, Normal S2 Lungs: Clear Abdomen: Normal bowel sounds Extremities: No edema, Normal pulses Skin: No breakdown, No significant lesion Labs LABS Laboratory Tests Test 08/16/16 13:00 08/16/16 14:20 08/16/16 21:48 08/17/16 03:25 White Blood Count 11.2x10^3/uL (4.0-11.0) 7.9x10^3/uL (4.0-11.0) Red Blood Count 4.54x10^6/uL (3.50-5.40) 4.26x10^6/uL (3.50-5.40) Hemoglobin 14.6g/dL (12.0-15.5) 14.0g/dL (12.0-15.5) Hematocrit 44.2% (36.0-47.0) 41.7% (36.0-47.0) Mean Corpuscular Volume 98fL (79-100) 98fL (79-100) Mean Corpuscular Hemoglobin 32pg (25-35) 33pg (25-35) Mean Corpuscular Hemoglobin Concent 33g/dL (31-37) 34g/dL (31-37) Red Cell Distribution Width 13.1% (11.5-14.5) 12.9% (11.5-14.5) Platelet Count 338x10^3/uL (140-400) 316x10^3/uL (140-400) Neutrophils (%) (Auto) 75% (31-73) 55% (31-73) Lymphocytes (%) (Auto) 17% (24-48) 37% (24-48) Monocytes (%) (Auto) 7% (0-9) 8% (0-9) Eosinophils (%) (Auto) 0% (0-3) 0% (0-3) Basophils (%) (Auto) 0% (0-3) 0% (0-3) Neutrophils # (Auto) 8.4x10^3uL (1.8-7.7) 4.3x10^3uL (1.8-7.7) Lymphocytes # (Auto) 1.9x10^3/uL (1.0-4.8) 2.9x10^3/uL (1.0-4.8) Monocytes # (Auto) 0.8x10^3/uL (0.0-1.1) 0.6x10^3/uL (0.0-1.1) Eosinophils # (Auto) 0.0x10^3/uL (0.0-0.7) 0.0x10^3/uL (0.0-0.7) Basophils # (Auto) 0.0x10^3/uL (0.0-0.2) 0.0x10^3/uL (0.0-0.2) D-Dimer (Wilma) < 0.27ug/mlFEU (0.00-0.50) Sodium Level 141mmol/L (136-145) 142mmol/L (136-145) Potassium Level 4.6mmol/L (3.5-5.1) 4.3mmol/L (3.5-5.1) Chloride Level 105mmol/L (98-107) 107mmol/L (98-107) Carbon Dioxide Level 32mmol/L (21-32) 28mmol/L (21-32) Anion Gap 4 (6-14) 7 (6-14) Blood Urea Nitrogen 9mg/dL (7-20) 9mg/dL (7-20) Creatinine 0.8mg/dL (0.6-1.0) 0.7mg/dL (0.6-1.0) Estimated GFR (Cockcroft-Gault) 82.6 96.4 Glucose Level 95mg/dL (70-99) 81mg/dL (70-99) Calcium Level 9.1mg/dL (8.5-10.1) 8.5mg/dL (8.5-10.1) Magnesium Level 2.3mg/dL (1.8-2.4) Total Bilirubin 0.3mg/dL (0.2-1.0) Direct Bilirubin 0.1mg/dL (0.0-0.2) Aspartate Amino Transf (AST/SGOT) 33U/L (15-37) Alanine Aminotransferase (ALT/SGPT) 80U/L (14-59) Alkaline Phosphatase 83U/L (46-116) Creatine Kinase 24U/L (26-192) 22U/L (26-192) Creatine Kinase MB (Mass) 1.9ng/mL (0.0-3.6) 2.1ng/mL (0.0-3.6) Creatine Kinase MB Relative Index 7.9% (0-4) 9.5% (0-4) Troponin I Quantitative < 0.017ng/mL (0.000-0.055) < 0.017ng/mL (0.000-0.055) < 0.017ng/mL (0.000-0.055) < 0.017ng/mL (0.000-0.055) VV-Rzy-I-Type Natriuretic Peptide 72pg/mL (0-124) Total Protein 6.6g/dL (6.4-8.2) Albumin 3.4g/dL (3.4-5.0) Thyroid Stimulating Hormone (TSH) 3.521uIU/mL (0.358-3.74) Serum Test, Qualitative Negative (NEG) Assessment and Plan Assessmemt and Plan Problems Medical Problems: (1) Syncope Status: Acute Problems: Comment Review of Relevant I have reviewed the following items shi (where applicable) has been applied. Labs Laboratory Tests Test 08/16/16 11:18 08/16/16 12:10 08/16/16 13:00 08/16/16 14:20 Bedside Urine HCG, Qualitative Hcg negative (Negative) Urine Collection Type Unknown Urine Color Melisa Urine Clarity Clear Urine pH 6.0 Urine Specific Noonan 1.025 Urine Protein 30mg/dL (NEG-TRACE) Urine Glucose (UA) Negativemg/dL (NEG) Urine Ketones (Stick) Tracemg/dL (NEG) Urine Blood Negative (NEG) Urine Nitrite Negative (NEG) Urine Bilirubin Small (NEG) Urine Urobilinogen Dipstick 1.0mg/dL (0.2 mg/dL) Urine Leukocyte Esterase Moderate (NEG) Urine RBC 0/HPF (0-2) Urine WBC Tntc/HPF (0-4) Urine Bacteria 0/HPF (0-FEW) Urine Mucus Mod/LPF Urine Opiates Screen Neg (NEG) Urine Methadone Screen Neg (NEG) Urine Barbiturates Neg (NEG) Urine Phencyclidine Screen Neg (NEG) Urine Amphetamine/Methamphetamine Neg (NEG) Urine Benzodiazepines Screen Pos (NEG) Urine Cocaine Screen Neg (NEG) Urine Cannabinoids Screen Pos (NEG) Urine Ethyl Alcohol Neg (NEG) White Blood Count 11.2x10^3/uL (4.0-11.0) Red Blood Count 4.54x10^6/uL (3.50-5.40) Hemoglobin 14.6g/dL (12.0-15.5) Hematocrit 44.2% (36.0-47.0) Mean Corpuscular Volume 98fL (79-100) Mean Corpuscular Hemoglobin 32pg (25-35) Mean Corpuscular Hemoglobin Concent 33g/dL (31-37) Red Cell Distribution Width 13.1% (11.5-14.5) Platelet Count 338x10^3/uL (140-400) Neutrophils (%) (Auto) 75% (31-73) Lymphocytes (%) (Auto) 17% (24-48) Monocytes (%) (Auto) 7% (0-9) Eosinophils (%) (Auto) 0% (0-3) Basophils (%) (Auto) 0% (0-3) Neutrophils # (Auto) 8.4x10^3uL (1.8-7.7) Lymphocytes # (Auto) 1.9x10^3/uL (1.0-4.8) Monocytes # (Auto) 0.8x10^3/uL (0.0-1.1) Eosinophils # (Auto) 0.0x10^3/uL (0.0-0.7) Basophils # (Auto) 0.0x10^3/uL (0.0-0.2) D-Dimer (Wilma) < 0.27ug/mlFEU (0.00-0.50) Sodium Level 141mmol/L (136-145) Potassium Level 4.6mmol/L (3.5-5.1) Chloride Level 105mmol/L (98-107) Carbon Dioxide Level 32mmol/L (21-32) Anion Gap 4 (6-14) Blood Urea Nitrogen 9mg/dL (7-20) Creatinine 0.8mg/dL (0.6-1.0) Estimated GFR (Cockcroft-Gault) 82.6 Glucose Level 95mg/dL (70-99) Calcium Level 9.1mg/dL (8.5-10.1) Magnesium Level 2.3mg/dL (1.8-2.4) Total Bilirubin 0.3mg/dL (0.2-1.0) Direct Bilirubin 0.1mg/dL (0.0-0.2) Aspartate Amino Transf (AST/SGOT) 33U/L (15-37) Alanine Aminotransferase (ALT/SGPT) 80U/L (14-59) Alkaline Phosphatase 83U/L (46-116) Creatine Kinase 24U/L (26-192) 22U/L (26-192) Creatine Kinase MB (Mass) 1.9ng/mL (0.0-3.6) 2.1ng/mL (0.0-3.6) Creatine Kinase MB Relative Index 7.9% (0-4) 9.5% (0-4) Troponin I Quantitative < 0.017ng/mL (0.000-0.055) < 0.017ng/mL (0.000-0.055) TT-Wpg-D-Type Natriuretic Peptide 72pg/mL (0-124) Total Protein 6.6g/dL (6.4-8.2) Albumin 3.4g/dL (3.4-5.0) Thyroid Stimulating Hormone (TSH) 3.521uIU/mL (0.358-3.74) Serum Test, Qualitative Negative (NEG) Test 08/16/16 21:48 08/17/16 03:25 Troponin I Quantitative < 0.017ng/mL (0.000-0.055) < 0.017ng/mL (0.000-0.055) White Blood Count 7.9x10^3/uL (4.0-11.0) Red Blood Count 4.26x10^6/uL (3.50-5.40) Hemoglobin 14.0g/dL (12.0-15.5) Hematocrit 41.7% (36.0-47.0) Mean Corpuscular Volume 98fL (79-100) Mean Corpuscular Hemoglobin 33pg (25-35) Mean Corpuscular Hemoglobin Concent 34g/dL (31-37) Red Cell Distribution Width 12.9% (11.5-14.5) Platelet Count 316x10^3/uL (140-400) Neutrophils (%) (Auto) 55% (31-73) Lymphocytes (%) (Auto) 37% (24-48) Monocytes (%) (Auto) 8% (0-9) Eosinophils (%) (Auto) 0% (0-3) Basophils (%) (Auto) 0% (0-3) Neutrophils # (Auto) 4.3x10^3uL (1.8-7.7) Lymphocytes # (Auto) 2.9x10^3/uL (1.0-4.8) Monocytes # (Auto) 0.6x10^3/uL (0.0-1.1) Eosinophils # (Auto) 0.0x10^3/uL (0.0-0.7) Basophils # (Auto) 0.0x10^3/uL (0.0-0.2) Sodium Level 142mmol/L (136-145) Potassium Level 4.3mmol/L (3.5-5.1) Chloride Level 107mmol/L (98-107) Carbon Dioxide Level 28mmol/L (21-32) Anion Gap 7 (6-14) Blood Urea Nitrogen 9mg/dL (7-20) Creatinine 0.7mg/dL (0.6-1.0) Estimated GFR (Cockcroft-Gault) 96.4 Glucose Level 81mg/dL (70-99) Calcium Level 8.5mg/dL (8.5-10.1) Laboratory Tests Test 08/16/16 13:00 08/16/16 14:20 08/16/16 21:48 08/17/16 03:25 White Blood Count 11.2x10^3/uL (4.0-11.0) 7.9x10^3/uL (4.0-11.0) Red Blood Count 4.54x10^6/uL (3.50-5.40) 4.26x10^6/uL (3.50-5.40) Hemoglobin 14.6g/dL (12.0-15.5) 14.0g/dL (12.0-15.5) Hematocrit 44.2% (36.0-47.0) 41.7% (36.0-47.0) Mean Corpuscular Volume 98fL (79-100) 98fL (79-100) Mean Corpuscular Hemoglobin 32pg (25-35) 33pg (25-35) Mean Corpuscular Hemoglobin Concent 33g/dL (31-37) 34g/dL (31-37) Red Cell Distribution Width 13.1% (11.5-14.5) 12.9% (11.5-14.5) Platelet Count 338x10^3/uL (140-400) 316x10^3/uL (140-400) Neutrophils (%) (Auto) 75% (31-73) 55% (31-73) Lymphocytes (%) (Auto) 17% (24-48) 37% (24-48) Monocytes (%) (Auto) 7% (0-9) 8% (0-9) Eosinophils (%) (Auto) 0% (0-3) 0% (0-3) Basophils (%) (Auto) 0% (0-3) 0% (0-3) Neutrophils # (Auto) 8.4x10^3uL (1.8-7.7) 4.3x10^3uL (1.8-7.7) Lymphocytes # (Auto) 1.9x10^3/uL (1.0-4.8) 2.9x10^3/uL (1.0-4.8) Monocytes # (Auto) 0.8x10^3/uL (0.0-1.1) 0.6x10^3/uL (0.0-1.1) Eosinophils # (Auto) 0.0x10^3/uL (0.0-0.7) 0.0x10^3/uL (0.0-0.7) Basophils # (Auto) 0.0x10^3/uL (0.0-0.2) 0.0x10^3/uL (0.0-0.2) D-Dimer (Wilma) < 0.27ug/mlFEU (0.00-0.50) Sodium Level 141mmol/L (136-145) 142mmol/L (136-145) Potassium Level 4.6mmol/L (3.5-5.1) 4.3mmol/L (3.5-5.1) Chloride Level 105mmol/L (98-107) 107mmol/L (98-107) Carbon Dioxide Level 32mmol/L (21-32) 28mmol/L (21-32) Anion Gap 4 (6-14) 7 (6-14) Blood Urea Nitrogen 9mg/dL (7-20) 9mg/dL (7-20) Creatinine 0.8mg/dL (0.6-1.0) 0.7mg/dL (0.6-1.0) Estimated GFR (Cockcroft-Gault) 82.6 96.4 Glucose Level 95mg/dL (70-99) 81mg/dL (70-99) Calcium Level 9.1mg/dL (8.5-10.1) 8.5mg/dL (8.5-10.1) Magnesium Level 2.3mg/dL (1.8-2.4) Total Bilirubin 0.3mg/dL (0.2-1.0) Direct Bilirubin 0.1mg/dL (0.0-0.2) Aspartate Amino Transf (AST/SGOT) 33U/L (15-37) Alanine Aminotransferase (ALT/SGPT) 80U/L (14-59) Alkaline Phosphatase 83U/L (46-116) Creatine Kinase 24U/L (26-192) 22U/L (26-192) Creatine Kinase MB (Mass) 1.9ng/mL (0.0-3.6) 2.1ng/mL (0.0-3.6) Creatine Kinase MB Relative Index 7.9% (0-4) 9.5% (0-4) Troponin I Quantitative < 0.017ng/mL (0.000-0.055) < 0.017ng/mL (0.000-0.055) < 0.017ng/mL (0.000-0.055) < 0.017ng/mL (0.000-0.055) AH-Keh-D-Type Natriuretic Peptide 72pg/mL (0-124) Total Protein 6.6g/dL (6.4-8.2) Albumin 3.4g/dL (3.4-5.0) Thyroid Stimulating Hormone (TSH) 3.521uIU/mL (0.358-3.74) Serum Test, Qualitative Negative (NEG) Medications Current Medications Ceftriaxone Sodium 1 gm/ Sodium Chloride 50 ml @ 100 mls/hr Q24H IV ; Start at 15:00 Ceftriaxone Sodium (Rocephin 1gm Ivpb For Omni) 50 ml @ 100 mls/hr 1X ONCE IV Last administered on 08/16/16 15:59; Start 08/16/16 at 14:45; Stop 08/16/16 at 15:14; Status DC Ondansetron HCl (Zofran) 4 mg PRN Q8HRS PRN IV NAUSEA/VOMITING; Start 08/16/16 at 15:30; Stop 08/17/16 at 15:29 Olanzapine (Zyprexa) 10 mg QHS PO Last administered on 08/16/16 21:48; Start 08/16/16 at 22:00 Olanzapine (Zyprexa) 5 mg DAILY PO ; Start 08/17/16 at 09:00 Fluoxetine HCl (Prozac) 60 mg DAILY PO ; Start 08/17/16 at 09:00 Hydroxyzine Pamoate (Vistaril) 50 mg PRN Q6HRS PRN PO ITCHING; Start 08/16/16 at 21:30 Vitals/I & O Vital Sign - Last 24 Hours 08/16/16 08/16/16 08/16/16 08/16/16 13:00 13:30 14:00 14:30 Pulse 76 54 59 61 Resp 22 21 17 20 B/P 109/77 111/64 109/71 117/73 Pulse Ox 97 96 97 96 08/16/16 08/16/16 08/16/16 08/16/16 15:00 15:30 16:00 16:30 Pulse 76 69 71 69 Resp 20 21 20 22 B/P 112/77 123/73 125/67 114/79 Pulse Ox 96 98 98 99 08/16/16 08/16/16 08/16/16 08/16/16 17:00 17:30 18:00 19:00 Temp 98.3 98.3 Pulse 88 85 67 71 Resp 24 18 B/P 139/74 132/77 111/68 116/70 Pulse Ox 97 97 99 98 O2 Delivery Room Air 08/16/16 08/16/16 08/17/16 08/17/16 20:00 23:00 03:00 04:40 Temp 98.0 97.8 97.8 98.0 97.8 97.8 Pulse 69 52 52 Resp 16 B/P 94/53 112/54 112/54 Pulse Ox 97 97 97 O2 Delivery Room Air 08/17/16 08/17/16 08/17/16 07:00 08:00 10:53 Temp 97.9 97.9 97.9 97.9 Pulse 93 57 Resp B/P 105/61 117/66 Pulse Ox 94 97 O2 Delivery Room Air Room Air Room Air Intake and Output 08/16/16 08/16/16 08/17/16 14:59 22:59 06:59 Intake Total 50 ml 360 ml Balance 50 ml 360 ml ZION RAJAN MD Aug 17, 2016 12:49
[2016-08-17] MEDS: FLUOXETINE HCL 20 MG CAPSULE. PO SCH (16:04)
[2016-08-17] MEDS: OLANZAPINE 5 MG TABLET. PO SCH ×2 (16:04→21:10)
--- NOTE | 2016-08-17 16:35 | CARD ---
APPROVED REPORT EXAM Tilt Table Attending Nurse: Nelli Quevedo RN HISTORY The Patient is a 31 year-old female with a history of syncope INDICATIONS 1500 initial VS, p alert and oriented x 3, no c/o at this time PROCEDURE After explaining the risks, benefits, and alternative options, informed consent was obtained from the patient. Base - lineRhythm: SinusHR: 65 bpmBP: 112/92qyMiH4 Sat: 94 % Flat15:05Rhythm: Sinus BradycardiaHR: 56 bpmBP: 113/49naJxD0 Sat: 95 % Flat15:10Rhythm: Sinus BradycardiaHR: 55 bpmBP: 115/43wgCiY1 Sat: 99 % 80' Tilt15:12Rhythm: SinusHR: 80 bpmBP: 114/79wxHiY2 Sat: 96 % 80' Tilt15:15Rhythm: SinusHR: 96 bpmBP: 119/95isEyN3 Sat: 94 % 80' Tilt15:20Rhythm: Sinus TachycardiaHR: 103 bpmBP: 116/91bxRrL1 Sat: 94 % 80' Tilt15:25Rhythm: Sinus TachycardiaHR: 110 bpmBP: 121/36obCgO0 Sat: 94 % 80' Tilt15:30Rhythm: Sinus TachycardiaHR: 119 bpmBP: 119/10bxAdG2 Sat: 95 % 80' Tilt15:35Rhythm: Sinus TachycardiaHR: 133 bpmBP: 114/45vdOfQ9 Sat: 95 % 80' Tilt15:38Rhythm: Sinus TachycardiaHR: 138 bpmBP: 98/34usJgQ4 Sat: 98 % Flat15:39Rhythm: Sinus TachycardiaHR: 88 bpmBP: 104/01waXsI0 Sat: 98 % Flat15:40Rhythm: Sinus TachycardiaHR: 104 bpmBP: 108/64mmHg 15:50Rhythm: SinusHR: 70 bpmBP: 104/29sxUcZ4 Sat: 98 % 15:55Rhythm: SinusHR: 85 bpmBP: 114/19euQqS6 Sat: 97 % COMPLICATIONS 1535 Pt states not feeling well, pale, clammy 1538 pt eyes fluttering, starting to shake, hr 138 153 9 beginning to lie pt flat HR quickly down to 80 then spiked back up to 159, pt completely unconsciou s upon lying down then awoke after approx 30 seconds and said "I passed out didn't I". 1555 pt alert and oriented x 3, sitting on side of bed CONCLUSION Cardiac tilt table consistent with vagal neurocardiogenic syncope (Vasovagal response). Cannot rule o ut POTS.
[2016-08-18 03:00] VITALS: BP 104/61
[2016-08-18 07:00] VITALS: BP 112/74
[2016-08-18] MEDS ORDERED: AZITHROMYCIN 1 GM PACKET PO ONE (08:00)
[2016-08-18] MEDS: OLANZAPINE 5 MG TABLET. PO SCH (10:02)
[2016-08-18] MEDS: FLUOXETINE HCL 20 MG CAPSULE. PO SCH (10:02)
[2016-08-18 11:16] VITALS: BP 121/73
[2016-08-18 15:17] VITALS: BP 125/74
--- NOTE | 2016-08-18 15:30 | PDOC ---
CARDIO Progress Notes Date and Time Date of Service 08/18/2016 Time of Evaluation 1300 Subjective Subjective: No Chest Pain, No shortness of breath, No Palpitations, No Dizziness Vitals Vitals Vital Signs Date Time Temp Pulse Resp B/P Pulse Ox O2 Delivery O2 Flow Rate FiO2 08/18/16 11:16 97.3 74 16 121/73 96 Room Air 97.3 Weight Weight [ ] Input and Output Intake and Output Intake and Output 08/18/16 07:00 Intake Total 240 ml Balance 240 ml Intake Oral 240 ml # Voids 3 Microbiology Micro Microbiology 08/16/16 Urine Culture - Preliminary, Resulted 08/16/16 Urine Culture Result 1 (ZACHARIAH) - Preliminary, Resulted Physical Exam HEENT: Neck Supple W Full Motion Chest: Symmetric LUNGS: Clear to Auscultation Heart: S1S2, RRR (SR/SB) Abdomen: Soft N/T Extremities: No Edema, No Calf Tenderness Neurology: alert, oriented, follow commands Assessment Assessment 1. Syncope: Tilt table revealed vasodepressor syncope. No evidence of bradycardia. Not a PPM candidate. Pt requested to see cardiology 2. Sinus bradycardia: 40-50s overnight asymptomatic. No episodes of dizziness overnight. TTE unremarkable. 3. Bipolar disorder: On zyprexa. Alternative? Could potentially cause hypotension and syncope. Could be accentuated by prozac and vistaril as well. Recommendations 1. Would consider for event monitor but this is not allowed in [facility] system 2. Would recommend BB but would not be unable to tolerate with baseline bradycardia. 3. Discussed physical maneuvers to abort presyncopal/syncopal spells, maintain hydration adequacy 4. Discussed compression stocking ad use of abdominal binder 5. OK to DC per cardiac standpoint QUINTEN HILLIARD [employer] SUPER[employer] Aug 18, 2016 15:30
== END 2016-08-18 17:00 ==
LOC: EEVIPCON 11:55 → ER 11:55 → ED HOLD 15:00 → 5 SOUTH 19:24
PROVIDERS: ADMIT Internal Medicine; ATTEND Internal Medicine
DX: R55 Syncope and collapse (principal); R00.1 Bradycardia, unspecified; F31.9 Bipolar disorder, unspecified; N39.0 Urinary tract infection, site not specified; F17.210 Nicotine dependence, cigarettes, uncomplicated
CPT/HCPCS: 36415; 73564; 80048; 80076; 81001; 81025; 82550; 82553; 83735; 83880; 84443; 84484; 84703; 85027; 85379; 87086; 87491; 87591; 87641; 93005; 93660; 96365; 96375; 99285; C8929; G0378; G0481; J0690; J0696; G0379

== ENCOUNTER → 2021-06-13 | Outpatient (CLI) | payer OTHER ==
--- NOTE | 2021-06-13 12:05 | RAD ---
EXAM: Lumbar spine, 2 views. HISTORY: Pain. COMPARISON: None. FINDINGS: 2 views of the lumbar spine are obtained. There is lumbar extra scoliosis centered at L2-L3 . There is minimal anterolisthesis of L2 on L3. There is slight kyphosis centered at L3-L4. There is severe degenerative endplate remodeling with disc space narrowing at this level, and to a lesser exte nt, L2-L3. IMPRESSION: 1. Multilevel degenerative change, primarily at L3-L4, and to a lesser extent, L2-L3. 2. Mild scoliosis and slight listhesis at L2-L3. Electronically signed by: Lois Collazo MD (06/13/2021 12:03 PM) [id number]
== END ==
LOC: RAD 11:20
PROVIDERS: ATTEND Family Medicine
DX: Z02.71 Encounter for disability determination (principal); M47.816 Spondylosis without myelopathy or radiculopathy, lumbar region; M43.16 Spondylolisthesis, lumbar region; M41.86 Other forms of scoliosis, lumbar region; M48.061 Spinal stenosis, lumbar region without neurogenic claudication
CPT/HCPCS: 72100